=== PATIENT | female | born 1990 | race Caucasian/White ===

== ENCOUNTER 2024-09-25 16:02 | Inpatient (IN) | payer MEDICAID, SELFPAY ==
[2024-09-25] VITALS (18 sets, daily range): BP systolic 94–166; BP diastolic 41–98; PULSE 27–110; RESP 16–24; TEMP 36.9–37; O2SAT 81–99; BMI 34.9
--- NOTE | 2024-09-25 16:21 | PD.LDANTE ---
Documentation for date of: 09/25/24 OB Labor/Induct. HPI History of Present Illness History of present illness: H and P dictated in Nuance [id number] Meds Home Medications and Allergies Allergies Allergy/AdvReac Type Severity Reaction Status Date / Time No Known Allergies Allergy Verified 04/20/24 16:45 OB Exam Physical Exam Vital signs: Pulse BP Pulse Ox 105 H 166/91 H 98 09/25/24 16:07 09/25/24 16:07 09/25/24 16:17
[2024-09-25 16:47] LABS: Basophils # (Auto) 0.1 Thou/mm3 (0.0-0.2); Basophils % (Auto) 0 % (0-2.5); Eosinophils % (Auto) 0 % (0-10); Hematocrit 31.7 % (36.0-46.0); Hemoglobin 10.1 g/dL (12.0-16.0); Immature Granulocytes % (Auto) 1 % (0-0); Immature Granulocytes Auto 0.14 Thou/mm3 (0.00-0.00); Lymphocytes # (Auto) 0.8 Thou/mm3 (1.0-4.8); Lymphocytes % (Auto) 5 % (10-50); Mean Corpuscular HGB Conc 31.9 g/dl (31.0-37.0); Mean Corpuscular Hemoglobin 25.1 pg (25.0-35.0); Mean Corpuscular Volume 79 fL (80-100); Monocytes # (Auto) 0.5 Thou/mm3 (0.0-0.8); Monocytes % (Auto) 3 % (0-12); Neutrophils # (Auto) 14.3 Thou/mm3 (1.8-7.7); Neutrophils % (Auto) 90 % (37-80); Nucleated Red Blood Cell # 0.02 Thou/mm3 (0.00-0.00); Nucleated Red Blood Cell % 0 /100 WBC (0); Platelet Count 352 Thou/mm3 (140-440); RDW Standard Deviation 43.1 fL (36.4-46.3); Red Blood Count 4.02 Miln/mm3 (4.00-5.20); White Blood Count 15.8 Thou/mm3 (3.6-11.0)
[2024-09-25] MEDS: ceFAZolin/D5W 2 GM IV 2 GM/100 ML BAG IV (16:55)
[2024-09-25] MEDS: FAMOTIDINE INJ 10 MG/ML VIAL 2 ML 20 MG IV (16:55)
[2024-09-25] MEDS: METOCLOPRAMIDE INJ 5 MG/ML VIAL 2 ML 10 MG IVP (16:55)
[2024-09-25 17:24] LABS: MHATP/TP-PA* See Sep Rpt; Syphilis Reactive (Nonreactive)
[2024-09-25 17:39] LABS: HIV (1&2) Antibody Rapid Non-Reactive
--- NOTE | 2024-09-25 17:44 | ESDS_ITS ---
DS: Providers Provider Date of admission: 09/25/24 16:02 Primary care physician: Physician No Primary/Family Admitting Provider: Magdi Carlos MD Attending Provider on Admission: Magdi Carlos MD Attending Provider on DC: Magdi Carlos MD Discharging Provider: Magdi Carlos MD DS: Diagnosis Problem List Completed Was Problem List Reviewed/Reconciled?: Yes Summary/Hosp Course Brief History: H and P dictated in Nuance [id number] Peripartum Data Delivery Method: Low Transverse Procedures: Procedures Operation Date: 09/25/24 16:45 <No data on this case meets the specified criteria> Operation Date: 09/25/24 16:45 <No data on this case meets the specified criteria> 1: Disposition of : NICU ( Treatment for Congenital Syphilis ) Time Spent with Patient Time attestation: Total time spent providing and/or coordinating discharge services: Exam Vital Signs Pulse BP Pulse Ox 104 H 138/78 H 98 09/25/24 16:44 09/25/24 16:44 09/25/24 16:17 Discharge Plan Plan Patient Disposition: HOME (Self Care) Patient condition on transfer: Stable Prescriptions/Referrals Prescriptions/Med Rec: New hydrocodone-acetaminophen 5-325 mg tablet 1 tab PO Q6H MDD 4 PRN (Reason: pain) Qty: 20 0RF ibuprofen 600 mg tablet 600 mg PO Q6H PRN (Reason: pain) Qty: 30 0RF Referrals: No Primary/Family,Physician [Primary Care Provider] - Patient/Caregiver Discharge Instructions Discharge Activity: activity as tolerated Other Discharge Activity Instructions:: Follow up office 1 week. Follow up for 2nd Bicillin injection at [facility] in 1 week Follow up for 3rd Bicillin injection at [facility] in 2 weeks. Follow up at [facility] in 6 months for repeat RPR. Follow up with Dr Carlos in 1 weeks. Education Materials: Breast Care After , Syphilis, C Section Dc Print Language: Nepali Activity Restrictions/Additional Instructions: follow up with dr Carlos in one week for incision care next appointment @[facility]: with Matin10/04/24 at 3:45 pm for antibiotic. [address] [place], [address] further appointments for antibiotics will be scheduled by clinic . Stand Alone Forms: Antonieta Award Info., Patient Portal Info Letter, Work/Release Restrictions Vaccines Vaccines Given During Stay: Influenza and TDaP Discharge Order Discharge Orders: Discharge (Routine); Ordered 09/28/24 Ordered By: Magdi Carlos Planned Discharge Date 09/28/24
--- NOTE | 2024-09-25 17:44 | PD.LDDELS ---
Data (Garza) Data Hx Section: No : 2 Para: 1 Term: 0 : 0 : 0 Delivery Data (Garza) Labor Data ROM Date: 09/25/24 ROM Time: 17:11 Rupture Type: AROM Amniotic Fluid: Thick Meconium Delivery Data EDC: 09/29/24 EDC calculated by:: ultrasound Labor Onset Stage 1 Date: 09/25/24 Labor Onset Stage 1 Time: 09:00 Labor Onset Stage 2 Date: 09/25/24 Labor Onset Stage 2 Time: 17:11 Delivery Date: 09/25/24 Delivery Time: 17:11 Gestational age (weeks): 39 Gestational age (days): 3 Placenta Delivery Date: 09/25/24 Placenta Delivery Time: 17:12 Delivered by: Magdi Carlos Delivery nurse: Sera Castillo Other staff at delivery: Nurse Other staff at delivery: Nursery Nurse Other staff at delivery: Elicia Leon Other staff at delivery: Stephany Lozano Delivery Method Delivery: Delivery Type: Repeat Presentation: Vertex Position: OP Anesthesia Type Primary Anesthesia: Spinal Placenta Placenta Delivery: Manual Placenta Cultures Obtained: No Placenta Sent for Examination: Yes Cord Sample: Cord Blood Obtained, Cord Gases Arterial and Cord Gases Venous EBL Estimated blood loss (ml): 600 Additional Procedures None Complications Complications: None Data (Garza) [place] Data Gender: Female Weight Grams: 3735 1 Minute Total: 8 5 Minute Total: 9
[2024-09-25 18:08] LABS: Collection Type, Urine Catheter
[2024-09-25 18:30] LABS: INR 0.9 (0.9-1.3); Partial Thromboplastin Time 22.3 Seconds (22.0-36.0); Prothrombin Time 10.1 Seconds (9.0-12.2)
[2024-09-25 18:32] LABS: Amphetamine/Metham Scrn,Ur OB Negative (Negative); Benzoylecgonine Screen, Ur OB Negative (Negative); Opiate Screen,Urine OB Negative (Negative); THC Screen,Urine OB Negative (Negative)
[2024-09-25 18:35] LABS: Fibrinogen 773 mg/dL (175-375)
[2024-09-25 18:40] LABS: Alanine Aminotransferase < 7 U/L (10-49); Albumin, Serum 4.5 gm/dL (3.5-5.0); Albumin/Globulin Ratio 1.6 (1.2-2.2); Alkaline Phosphatase 161 U/L (46-116); Anion Gap 12 (7-16); Aspartate Amino Transferase 17 U/L (0-34); BUN/Creatinine Ratio 19 Ratio (12-20); Bilirubin,Total 0.3 mg/dL (0.3-1.2); Blood Urea Nitrogen 13 mg/dL (9-23); Calcium 9.5 mg/dL (8.3-10.6); Calcium (Corrected) 9.5 mg/dL (8.5-10.1); Carbon Dioxide 18.3 mMol/L (20.0-31.0); Chloride 102 mMol/L (98-107); Creatinine (Component) 0.7 mg/dL (0.6-1.3); Estimated Creatinine Clearance 155.5 mL/min (>60); Globulin 2.8 gm/dL (2.3-3.5); Glucose 143 mg/dL (74-106); Osmolality,Calculated 266 (275-295); Potassium 4.1 mMol/L (3.4-5.1); Sodium 132 mMol/L (136-145); Total Protein 7.3 gm/dL (5.7-8.2); Uric Acid 7.3 mg/dL (3.1-7.8); eGFR > 60 See Note
[2024-09-25 18:55] LABS: Bacteria,Urine Rare; Bilirubin,Urine Negative (Negative); Blood,Urine 3+ (Negative); Clarity,Urine Turbid (Clear/Hazy); Color,Urine Yellow (Lt Yel-Yel); Glucose, Urine Negative (Negative); Ketones,Urine 2+ (Negative); Leukocyte Esterase,Urine Positive (Negative); Nitrite,Urine Negative (Negative); Protein,Urine 2+ (Neg - Trace); RBC,Urine 833 /hpf (0-3); Specific Gravity,Urine 1.022 (1.001-1.035); Squamous Epithelial Cell,Urine 1 /hpf (0-5); Urobilinogen,Urine Negative mg/dL (0.0-1.0); WBC,Urine 32 /hpf (0-5)
[2024-09-25] MEDS: OXYTOCIN in NS 20 units 20 UNIT/1,000 ML BAG 125 UNIT IV (23:02)
[2024-09-26 00:24] LABS: Basophils # (Auto) 0.1 Thou/mm3 (0.0-0.2); Basophils % (Auto) 0 % (0-2.5); Eosinophils # (Auto) 0.1 Thou/mm3 (0.0-0.5); Eosinophils % (Auto) 1 % (0-10); Hematocrit 28.8 % (36.0-46.0); Hemoglobin 9.3 g/dL (12.0-16.0); Immature Granulocytes % (Auto) 1 % (0-0); Immature Granulocytes Auto 0.08 Thou/mm3 (0.00-0.00); Lymphocytes # (Auto) 1.5 Thou/mm3 (1.0-4.8); Lymphocytes % (Auto) 11 % (10-50); Mean Corpuscular HGB Conc 32.3 g/dl (31.0-37.0); Mean Corpuscular Hemoglobin 25.7 pg (25.0-35.0); Mean Corpuscular Volume 80 fL (80-100); Monocytes # (Auto) 0.7 Thou/mm3 (0.0-0.8); Monocytes % (Auto) 6 % (0-12); Neutrophils # (Auto) 10.5 Thou/mm3 (1.8-7.7); Neutrophils % (Auto) 82 % (37-80); Nucleated Red Blood Cell % 0 /100 WBC (0); Platelet Count 290 Thou/mm3 (140-440); RDW Standard Deviation 43.4 fL (36.4-46.3); Red Blood Count 3.62 Miln/mm3 (4.00-5.20); White Blood Count 12.8 Thou/mm3 (3.6-11.0)
[2024-09-26] MEDS: ceFAZolin 2 GM in SODIUM CHLORIDE 0.9% 100 ML IV (01:12)
[2024-09-26 01:51] VITALS: BP 130/79; PULSE 67; RESP 18; TEMP 36.6; O2SAT 99
[2024-09-26 03:00] LABS: Rubella, IgG Antibody Reactive (Immune)
[2024-09-26 03:07] LABS: Hepatitis B Surface Antigen Non Reactive (Non React)
[2024-09-26] MEDS: KETOROLAC INJ 30 MG/ML VIAL IVP (05:01)
[2024-09-26] MEDS: SIMETHICONE 80 MG CHEW PO ×3 (05:01→20:16)
[2024-09-26] MEDS: Milk Of Magnesia Susp 30 ML UDC PO (05:01)
[2024-09-26] MEDS: ONDANSETRON INJ 2 MG/ML INJ 2 ML 4 MG IV (05:28)
[2024-09-26 05:35] VITALS: BP 143/98; PULSE 104; RESP 17; TEMP 36.5; O2SAT 96
[2024-09-26 08:15] VITALS: BP 126/76; PULSE 95; RESP 17; TEMP 36.8; O2SAT 97
[2024-09-26] MEDS: ceFAZolin/D5W 2 GM IV 2 GM/100 ML BAG IV ×2 (08:18→13:57)
[2024-09-26] MEDS: HYDROcodone/APAP 5/325 TABLET 2 TAB PO ×2 (08:18→13:57)
--- NOTE | 2024-09-26 10:10 | ESPR_ITS ---
RE: PERFECTO GRAHAM : 1990 DATE OF SERVICE: 09/26/2024 S: Postoperative day #1, the patient denies any problem or complaint. She is voiding. She is ambulating. She is tolerating regular diet. She is passing flatus. She denies excessive vaginal bleeding. She denies any dizziness or lightheadedness. She denies any chest pain, palpitations, shortness of breath or lower extremity pain. O: Vital Signs: Blood pressure 143/98, heart rate 104, respirations 17, and temperature is 97.7. Lungs: Clear to auscultation bilaterally. Heart: Regular rate and rhythm. Abdomen: Fundus is firm. Dressing is dry and intact. Extremities: Nontender. LABORATORY DATA: Hemoglobin pre-delivery is 9.3. Post-delivery is 10.1. RPR is reactive. A: Postop day #1, status post delivery. P: Removed dressing. Encourage ambulation. Social service consult. 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 Chronic hypertension, based on a review of previous ER visits, stable, not requiring any antihypertensives at this time. DT: 07:41:15 TT: 10:09:00 Ref: [id number] - TID: [id number]
[2024-09-26] MEDS: IBUPROFEN TAB 400 MG TABLET 800 MG PO ×2 (11:39→20:16)
--- NOTE | 2024-09-26 11:46 | PC.SS ---
KINDERGARTEN ASSISTANT conducted bedside contact with the patient to address nursing referral indicating patient was homeless and lack of OB services. KINDERGARTEN ASSISTANT introduced self, role and basis of referral. Patient informed KINDERGARTEN ASSISTANT that she resides at home with her grandfather, Marco Antonio Booth. Patient unable to provide physical address to residence or contact number to grandfather to confirm patient?s residency. Patient gave KINDERGARTEN ASSISTANT permission to contact patient?s mother, Michelle Bustillos ; to confirm that patient can discharge to mother?s residence. KINDERGARTEN ASSISTANT contacted patient?s mother to confirm discharge plan. Patient?s mother, Michelle Bustillos; informed KINDERGARTEN ASSISTANT that the patient cannot discharge to mother?s residence. In addition, patient?s mother informed KINDERGARTEN ASSISTANT that patient?s grandfather, Marco Antonio Booth; is . Patient?s mother confirmed that patient has been residing in the community. KINDERGARTEN ASSISTANT informed patient that mother has declined residence as a discharge option. KINDERGARTEN ASSISTANT informed patient of grandfather?s passing. Patient then informed KINDERGARTEN ASSISTANT that she can discharge to [facility]?s (Adarsh Moran) residence. Patient unable to provide contact number or address to [facility]. KINDERGARTEN ASSISTANT informed patient that report to CWS will be generated due to patient?s housing situation. Patient confirmed absence of OB services during term. Patient stated that lack of insurance was barrier to obtaining OB services. , Kathleen; is the patient?s 2nd child. Per the patient, other child (Zurdo Moran) is 1 years old and residing with [facility] Adarsh Moran. Patient denies history of involvement with CWS. Patient denies history of alcohol/drug abuse. Patient?s toxicology report was negative at admission. Patient denies history of domestic violence. Patient shared with KINDERGARTEN ASSISTANT possession of incarceration history. Incarcerated approximately 2 years ago. Patient reports no current probationary status. Patient denies history of mental health diagnosis or services. Patient denies possessing current level of depression or anxiety. Patient denies current intent/plan of SI/HI. Patient is not aligned with WIC, SNAP or TANF. Patient does not have possession of supplies or equipment. Patient does not have access to car seat. Patient identified [facility] as member of system of support. KINDERGARTEN ASSISTANT provided the patient with information to community resources to include [facility], Mental Health Services, WIC/SNAP/TANF, SS programs. KINDERGARTEN ASSISTANT updated bedside nurse. Nurse notified that CWS report will be generated.
--- NOTE | 2024-09-26 12:15 | ESHP_ITS ---
RE: PERFECTO GRAHAM : 1990 DATE OF ADMISSION: 09/25/2024 HISTORY OF PRESENT ILLNESS: This is a 34-year-old 2 para 1-0-0-1 with no care, who presents to labor and delivery complaining of persistent contractions and is noted to be 6 cm dilated. She has a previous delivery. An ultrasound on 04/20/2024 showed a 16-week 6-day fetus consistent with estimated due date of 09/29/2024 making her 39 weeks and 3 days today. The patient is noted to be 6 cm and the team is being called in for emergency delivery. She is a poor historian her past medical history is unclear. She appears to have had elevated blood pressures in a prior ER visit at 16 weeks . ALLERGIES: NO KNOWN DRUG ALLERGIES. MEDICATIONS: None. PAST MEDICAL HISTORY: Undiagnosed Chronic HTN, Left Kidney Surgery PAST SURGICAL HISTORY: delivery. FAMILY HISTORY: Denies. SOCIAL HISTORY: Incarceration during current , multiple substance use, unclear if has a home. REVIEW OF SYSTEMS: She denies any headache, change in vision or right upper quadrant pain. She denies any chest pain, palpitations, shortness of breath or lower extremity pain. PHYSICAL EXAMINATION: VITAL SIGNS: Blood pressure 166/91, heart rate 105, respirations 18, temperature is 98.2, and pulse oximetry is 90% on room air. HEENT: Oropharynx and sclerae are clear. LUNGS: Clear to auscultation bilaterally. HEART: Regular rate and rhythm. ABDOMEN: Gravid, term size. Old Pfannenstiel scar noted. PELVIC: See RN notes. EXTREMITIES: Nontender. SKIN: No gross rashes or lesions. NEUROLOGIC: No focal deficit. ASSESSMENT AND PLAN: Intrauterine at 39 weeks and 3 days by 16-week ultrasound, previous delivery, active labor, no care, hypertension, possible chronic versus gestational versus preeclampsia. Plan delivery. Informed consent was obtained. The patient was made aware of the risks, complications, alternatives, and benefits of the proposed procedure and she agrees. DT: 16:21:06 TT: 16:44:00 Ref: [id number] - TID: [id number] MTD
[2024-09-26 12:16] VITALS: BP 138/90; PULSE 94; RESP 19; TEMP 36.7; O2SAT 96
--- NOTE | 2024-09-26 12:21 | ESOP_ITS ---
RE: PERFECTO GRAHAM : 1990 DATE OF OPERATION: 09/25/2024 PREOPERATIVE DIAGNOSES: Intrauterine at 39 weeks and 3 days. Previous delivery. Elects repeat delivery. Active labor. No care. Homelessness. Poly substance abuse. POSTOPERATIVE DIAGNOSES: Intrauterine at 39 weeks and 3 days. Previous delivery. Elects repeat delivery. Active labor. No care. Homelessness. Poly substance abuse. Adenomyosis and endometriosis. PROCEDURE: Repeat low transverse section via Pfannenstiel skin incision. SURGEON: Magdi Carlos D.O. LADIES' HAT TRIMMER: EMMANUEL Artis. ANESTHESIA: Spinal. ANESTHESIOLOGIST: Balaji Collier CRNA. ESTIMATED BLOOD LOSS: 600 mL. COMPLICATIONS: None. COUNTS: Correct. PATHOLOGY: Placenta. FINDINGS: A live female , cephalic presentation, meconium-stained amniotic fluid. Apgars 8, 9. Weight 3735 grams female. Placenta removed completely intact. Uterus contains adenomyosis and both uterosacral ligaments contain vesicular endometriotic implants. DESCRIPTION OF PROCEDURE: After appropriate informed consent was obtained and the patient was made aware of the risks, complications, alternatives and benefits of the proposed procedure, she was taken to the operating room where she underwent induction of spinal anesthesia. She was placed in dorsal supine position with leftward tilt. She was prepped and draped in the usual sterile fashion. A timeout was performed and a Pfannenstiel skin incision was made with a scalpel, carried through to the underlying layer of fascia with the Bovie. The fascia was nicked in the midline. The incision was extended bilaterally with the Bovie. The inferior aspect of the fascia incision was grasped with Heather clamps and elevated. The underlying rectus muscles were dissected off with the Bovie. The rectus muscles were in the midline. The peritoneum identified between 2 Luque clamps and entered sharply with Metzenbaum scissors. The incision was extended superiorly and inferiorly with good visualization of the bladder. Bladder blade was then inserted. Vesicouterine peritoneum was incised transversely and bladder flap created digitally. Bladder blade was re-inserted. Lower uterine segment was incised in a transverse fashion with scalpel. The incision was extended bilaterally digitally. The 's head delivered. The mouth and nose were suctioned with bulb suction. Shoulder and body delivered atraumatically. The cord was clamped and cut. The was handed off to the waiting pediatric staff. Cord blood and gases were sent. The placenta was then removed manually. The uterus was exteriorized and cleared of all clots and debris. The uterine incision was repaired with #1-0 catgut suture in a running locking fashion. Second layer of same suture was used to imbricate the first layer and obtained excellent hemostasis. The vesicouterine peritoneum was closed with 2-0 chromic catgut suture in a running fashion. The uterus was returned to the abdomen. The gutters were cleared of all clots and debris. The peritoneum was closed with 0 chromic catgut suture in a running fashion. The muscle was closed with 0 chromic catgut suture in a running fashion. The fascia was closed with 0 Vicryl, beginning at each angle and ending at center in a running fashion. Subcutaneous tissue was irrigated with normal saline solution, found to be hemostatic, closed with 2-0 chromic catgut suture in a running fashion. The skin was closed with 4-0 Monocryl. A Dermabond Prineo dressing was applied. A sterile pressure dressing was applied. She tolerated the procedure well. Counts were correct. I discussed with the patient the nature of her condition, intraoperative findings, expectation for recovery. All questions answered. DT: 18:04:54 TT: 18:48:00 Ref: [id number] - TID: [id number]
--- NOTE | 2024-09-26 14:01 | PC.NURSE ---
Patient educated on the importance of walking to prevent pneumonia & blood clots. Patient verbalized understanding.
--- NOTE | 2024-09-26 14:48 | PC.SS ---
RACHEAL submitted verbal and written report to CWS. Verbal report submitted to Lizbet Walker. Copy placed in patient's chart. Copy submitted to CWS.
--- NOTE | 2024-09-26 14:55 | PC.SS ---
GRINDING MACHINE OPERATOR PORTABLE informed by patient's nurse request to schedule patient with outpatient appointment in 1 week to obtain penicillin dose. In addition, appointment will need to be made 1 week after initial appointment for 2nd dose of penicillin. GRINDING MACHINE OPERATOR PORTABLE contacted [facility]. Initial appointment scheduled for 10-04-24 @ 3:[address] Chong. Per [facility] staff, 2nd appointment will be scheduled following patient's participation with initial appointment on 10-04-24. GRINDING MACHINE OPERATOR PORTABLE updated bedside nurse.
[2024-09-26 16:00] VITALS: BP 128/80; PULSE 98; RESP 19; TEMP 36.7; O2SAT 96
[2024-09-26 21:36] VITALS: BP 136/84; PULSE 102; RESP 19; TEMP 36.8; O2SAT 96
--- NOTE | 2024-09-26 23:31 | PC.NURSE ---
09/26/2024 @ 0606 pt visiting baby in NICU. pt in stable condition and agreed to with pain medication once she is back in her room. RN applied abdominal binder for comfort, pt able to ambulate without dizziness or severe pain.
[2024-09-27 00:33] VITALS: BP 121/71; PULSE 102; RESP 18; TEMP 36.7; O2SAT 95
[2024-09-27] MEDS: HYDROcodone/APAP 5/325 TABLET 2 TAB PO ×4 (00:34→23:48)
[2024-09-27 04:10] VITALS: BP 130/81; PULSE 92; RESP 16; TEMP 36.8; O2SAT 96
--- NOTE | 2024-09-27 04:13 | PC.NURSE ---
@ 0413 attempted to call lab x2, no answer. will try again later regarding chlamydia/gonorrhea results
[2024-09-27 07:30] VITALS: BP 142/91; PULSE 96; RESP 19; TEMP 37; O2SAT 95
--- NOTE | 2024-09-27 08:02 | ESPR_ITS ---
RE: PERFECTO GRAHAM : 1990 DATE OF SERVICE: 09/27/2024 Postop day #2. The patient denies any problem or complaint. She is voiding. She is ambulating. She is tolerating regular diet. She is passing flatus. She denies any excessive vaginal bleeding. She denies any dizziness or lightheadedness. She denies any chest pain, palpitations, shortness of breath or lower extremity pain. Her RPR came back positive. Her confirmatory syphilis test was positive. RPR titer was 1-8. The patient will be treated for late latent syphilis. PHYSICAL EXAMINATION: Vital Signs: Blood pressure 130/81, heart rate 92, respirations 16, temperature is 98.2, pulse oximetry is 96% on room air. Lungs: Clear to auscultation bilaterally. Heart: Regular rate and rhythm. Abdomen: Incision clean and intact. Fundus is firm. Extremities: Nontender. ASSESSMENT: Postoperative day #2, status post delivery. Late latent syphilis. PLAN: Bicillin 2.4 million units IM injection. Upon discharge, we will arrange for followup for repeat Bicillin injections at weekly intervals for a total of 3 doses. I explained to the patient the nature of her condition and the recommended treatment plan. All questions answered. I stressed that failure to follow up at weekly intervals to get her Bicillin injections will result in having to re-treat or start the treatment over completely. tube worker is working on psychosocial issues to assist the patient with discharge. DT: 07:23:36 TT: 08:01:00 Ref: [id number] - TID: [id number]
[2024-09-27] MEDS: PEN G BENZ (Bicillin LA) 2.4 MMU/4 ML SYRG IM (08:45)
[2024-09-27] MEDS: SIMETHICONE 80 MG CHEW PO (08:45)
[2024-09-27] MEDS: Milk Of Magnesia Susp 30 ML UDC PO (08:45)
[2024-09-27] MEDS: IBUPROFEN TAB 400 MG TABLET 800 MG PO (14:15)
[2024-09-27 15:45] VITALS: BP 138/74; PULSE 103; RESP 19; TEMP 36.9; O2SAT 96
[2024-09-27 16:48] LABS: Chlamydia trachomatis PCR Negative (Not Detect); Neisseria Gonorrhoeae DNA PCR Negative (Not Detect); Trichomonas Positive (Negative)
--- NOTE | 2024-09-27 17:09 | PC.CC ---
ASW approached by bedside RN for clothing for pt. ASW provided a pair of shoes, long sleeve shirt and sweats. Pt set to D/c in AM on 09/28/24. SS will remain available as needed for pt care and staff support.
[2024-09-27 20:00] VITALS: BP 120/75; PULSE 107; RESP 16; TEMP 36.9; O2SAT 97
[2024-09-28] VITALS: BP 134/92; PULSE 89; RESP 18; TEMP 36.5; O2SAT 97
[2024-09-28 04:00] VITALS: BP 144/98; PULSE 88; RESP 16; TEMP 36.8; O2SAT 95
[2024-09-28] MEDS: IBUPROFEN TAB 400 MG TABLET 800 MG PO (05:04)
--- NOTE | 2024-09-28 07:51 | ESPR_ITS ---
RE: PERFECTO GRAHAM : 1990 DATE OF SERVICE: 09/28/2024 SUBJECTIVE: Postoperative day #1, the patient denies any problem or complaints. She is voiding. She is ambulating. She tolerated diet. She is passing flatus. She denies any excessive vaginal bleeding. She denies any dizziness or lightheadedness. She denies any chest pain, palpitations, shortness of breath or lower extremity pain. OBJECTIVE: Vital Signs: Blood pressure 144/98, heart rate 88, respirations 16, temperature is 98.3, pulse oximetry is 95% on room air. Lungs: Clear to auscultation bilaterally. Heart: Regular rate and rhythm. Abdomen: Fundus is firm. Incision is clear and intact. Extremities: Nontender. ASSESSMENT: Postop day #3, status post delivery, status post Bicillin 2.4 mU IM for late latent syphilis. PLAN: The patient will follow up at [facility] in a week for repeat Bicillin injection. She understands that she needs a third injection the week following her second injection at the [facility]. She will follow up at [facility] in one week for an incision check. Discharge instructions were given. DT: 06:35:10 TT: 07:50:00 Ref: [id number] - TID: [id number]
[2024-09-28 07:56] VITALS: BP 137/71; PULSE 109; RESP 18; TEMP 36.3; O2SAT 96
[2024-09-28] MEDS: INFLUENZA VIRUS QUADRIVALENT 0.5 ML SYRINGE IMi (10:18)
[2024-09-28] MEDS: DIPHTH,PERTUSS(ACELL),TET VAC 0.5 ML VIAL IMi (10:19)
[2024-09-28 11:55] VITALS: BP 132/87; PULSE 106; RESP 17; TEMP 36.9; O2SAT 97
--- NOTE | 2024-09-28 12:34 | PC.CC ---
ED Cutter In received a telephone call from OB nurse with an OB referral. Pathology Laboratory Technologist reviewed Pt chart and reviewed SW notes. SW Artemio has submitted a SCAR report and clothes were provided to Pt by TEODORO Snider. Pathology Laboratory Technologist contacted CWS in efforts to provide update regarding Pt being discharged. Pathology Laboratory Technologist spoke with Phyllis Lamas and update was given regarding Pt being discharge with resources but declined to give telephone number, address, and transportation. Pathology Laboratory Technologist informed CWS KAVITA is on day 3 of 10 day antibiotic treatment and will not be discharging until 10/05/2024. Pathology Laboratory Technologist engaged Pt and offered community resources and transportation, Pt accepted resources and declined transportation. Pathology Laboratory Technologist updated attending nurse.
--- NOTE | 2024-09-28 12:46 | PC.NURSE ---
At 1237 RN went to room to provide discharge instruction to patient, but room was empty. security contacted immediately and verified that a young lady with newton sweatpants and black shirt left the unit. main lobby security contacted but patient already left hospital. charge nurse Mar notified. MD Carlos notified.
== END 2024-09-28 12:37 | disposition home or self-care (01) | DRG 540 ==
LOC: S4SX 16:25 → S4NX 17:24 → S4SX 09-26 09:21
PROVIDERS: Admitting Provider Specialist; Visit Provider Specialist
PROC: 10D00Z1 Extraction of Products of Conception, Low, Open Approach (ICD-10-PCS; CPT 59514; principal; 2024-09-25 16:45)
DX: O34.211 Maternal care for low transverse scar from previous cesarean delivery (principal); O77.0 Labor and delivery complicated by meconium in amniotic fluid; Z37.0 Single live birth; Z3A.39 39 weeks gestation of pregnancy; O98.12 Syphilis complicating childbirth; A52.8 Late syphilis, latent; O34.83 Maternal care for other abnormalities of pelvic organs, third trimester; N80.03 Adenomyosis of the uterus; O99.324 Drug use complicating childbirth; F19.10 Other psychoactive substance abuse, uncomplicated; O16.4 Unspecified maternal hypertension, complicating childbirth; Z23 Encounter for immunization; Z59.00 Homelessness unspecified
CPT/HCPCS: 36415; 59409; 80053; 80307; 81001; 84550; 85025; 85384; 85610; 85730; 86703; 86762; 86780; 86850; 86900; 86901; 86923; 87086; 87340; 87491; 87591; 87661; 90686; 90715; A4649; J0561; J0689; J0690; J1885; J2274; J2371; J2405; J2590; J2765; J3010; J3490; J7050; A9270; J2270; J9060